=== PATIENT | female | born 1960 | race African-American/Black ===

== ENCOUNTER 2016-10-18 17:26 | Emergency (ER) | payer BC, OTHER ==
[~2016-10-18] VITALS: Ht 157.5 cm; Wt 100.7 kg
[2016-10-18 18:12] VITALS: BP 162/68
[2016-10-18] MEDS ORDERED: LIDOCAINE 1% HCL (LOCAL ANESTH.) INJ 20ML MDV ONE (20:28)
[2016-10-18] MEDS ORDERED: cefTRIAXone SOD 1,000 MG VL IM ONE (20:30)
[2016-10-18] MEDS ORDERED: LIDOCAINE 1% HCL (LOCAL ANESTH.) INJ 20ML MDV IJ ONE (21:00)
== END 2016-10-18 21:56 | disposition home or self-care (01) ==
LOC: ER 17:36
DX: J18.9 Pneumonia, unspecified organism (principal); R05 Cough
CPT/HCPCS: 71020; 71250; 96372; 99284; J0696; J2001

== ENCOUNTER 2017-07-15 05:45 | Inpatient (IN) | payer BC ==
[~2017-07-15] VITALS: Ht 157.5 cm; Wt 112.1 kg
[2017-07-15] MEDS ORDERED: cefTRIAXone 1GM/10ml IVPUSH 10 ML IV ONE (07:15)
[2017-07-15] MEDS ORDERED: ALBUTEROL SULF 2.5 MG/0.5ML(0.5%) NEB SOLN HHN ONE (07:15)
[2017-07-15] MEDS ORDERED: SODIUM CHLORIDE 0.9% 1,000 ML IV ONE (07:15)
[2017-07-15] MEDS ORDERED: AZITHROMYCIN 500MG/ 250ML 250 ML IV ONE (07:15)
[2017-07-15] MEDS ORDERED: IPRATROPIUM BROM 0.5 MG/2.5ML INH SOL HHN ONE (07:15)
[2017-07-15] MEDS ORDERED: methylPREDNISolone SOD SUCC 125 MG/2 ML VL IV ONE (07:15)
[2017-07-15 07:48] LABS: Basophils # (auto) 0.1 uL; Eosinophils # (auto) 0 uL; Hematocrit 44.1 % (36.0-46.0); Hemoglobin 14.2 g/dL (12.2-16.2); Lymphocytes # (auto) 3.1 uL; Lymphocytes % (auto) 30.6 % (10.0-50.0); Mean Corpuscular Hemoglobin 28.8 pg (28.0-32.0); Mean Corpuscular Hgb Conc. 32.2 g/dL (32.0-36.0); Mean Corpuscular Volume 89.5 fL (80.0-100.0); Mean Platelet Volume 9.8 fL (6.9-10.8); Monocytes # (auto) 1.2 uL; Monocytes % (auto) 11.6 % (0.0-12.0); Neutrophils # (auto) 5.7 uL; Neutrophils % (auto) 56.8 % (37.0-80.0); Nucleated Red Blood Cells % 0.1 %; Platelet Count (auto) 180 10^3/uL (140-450); Red Cell Distribution Width 14.4 % (11.8-14.3); White Blood Cell 10.1 10^3/uL (4.4-10.8)
[2017-07-15 08:20] LABS: Albumin 3.2 g/dL (3.4-5.0); BUN/Creatinine Ratio 30.4; Bilirubin, Total 0.5 mg/dL (0.2-1.0); Total Protein 6.7 g/dL (6.4-8.2)
[2017-07-15 08:33] LABS: B-Type Natriuretic Peptide 18.7 pg/mL (0-100); Temperature: 23.5 C (20.0-25.0)
[2017-07-15] MEDS ORDERED: SODIUM CHLORIDE 0.9% 1,000 ML IV SCH ×2 (09:10→17:20)
[2017-07-15] MEDS ORDERED: LACTULOSE 20Gm/30ML SOLN PO PRN (09:15)
[2017-07-15] MEDS ORDERED: HYDROcodone-ACET 5/325MG TAB PO PRN (09:15)
[2017-07-15] MEDS ORDERED: LORazepam 0.5 MG TAB PO PRN (09:15)
[2017-07-15] MEDS ORDERED: NITROGLYCERIN 0.4 MG SL TAB SL PRN (09:15)
[2017-07-15] MEDS ORDERED: OSELTAMIVIR 75 MG CAP PO ONE (09:15)
[2017-07-15] MEDS ORDERED: PROMETHAZINE HCL 25 MG/ML 1ML IV PRN (09:15)
[2017-07-15] MEDS ORDERED: ALBUTEROL SULF 2.5 MG/0.5ML(0.5%) NEB SOLN NEB PRN (09:15)
[2017-07-15] MEDS ORDERED: MORPHINE SULF INJ 2 MG/ML SYRINGE 1ML IV PRN ×2 (09:15)
[2017-07-15] MEDS ORDERED: TEMAZEPAM 15 MG CAP PO PRN (09:15)
[2017-07-15] MEDS ORDERED: ACETAMINOPHEN 500 MG TAB PO PRN (09:15)
[2017-07-15] MEDS ORDERED: DOXYCYCLINE HYC 100MG/250ML 250 ML IV SCH (09:15)
[2017-07-15] MEDS: OSELTAMIVIR 75 MG CAP PO SCH ×2 (10:00→22:08)
[2017-07-15] MEDS: ENOXAPARIN SOD 40 MG/0.4 ML SYRINGE SC SCH (10:58)
[2017-07-15] MEDS: ALBUTEROL SULF 2.5 MG/0.5ML(0.5%) NEB SOLN NEB SCH ×2 (12:00→18:50)
[2017-07-15] MEDS: IPRATROPIUM BROM 0.5 MG/2.5ML INH SOL NEB SCH ×2 (12:00→18:50)
[2017-07-15] MEDS: methylPREDNISolone SOD SUCC 40 MG/ML VL IV SCH ×2 (12:33→17:36)
[2017-07-15 12:58] VITALS: BP 134/78
[2017-07-15 13:00] VITALS: BP 134/78
[2017-07-15 13:23] VITALS: BP 134/78
[2017-07-15 17:28] VITALS: BP 124/67
[2017-07-15 20:00] VITALS: BP 144/66
[2017-07-15 22:00] VITALS: BP 144/66
[2017-07-16] MEDS: ALBUTEROL SULF 2.5 MG/0.5ML(0.5%) NEB SOLN NEB SCH ×3 (00:14→11:36)
[2017-07-16] MEDS: IPRATROPIUM BROM 0.5 MG/2.5ML INH SOL NEB SCH ×3 (00:14→11:36)
[2017-07-16] MEDS: methylPREDNISolone SOD SUCC 40 MG/ML VL IV SCH ×3 (02:12→11:32)
[2017-07-16 04:58] VITALS: BP 150/72
[2017-07-16 08:00] VITALS: BP 154/80
[2017-07-16 08:36] LABS: B-Type Natriuretic Peptide 87.66 pg/mL (0-100)
[2017-07-16 08:46] LABS: Temperature: 22.1 C (20.0-25.0)
[2017-07-16 09:00] VITALS: BP 154/80
[2017-07-16] MEDS ORDERED: cefTRIAXone 1GM/10ml IVPUSH 10 ML IV SCH (09:00)
[2017-07-16] MEDS: OSELTAMIVIR 75 MG CAP PO SCH (09:38)
[2017-07-16] MEDS: ENOXAPARIN SOD 40 MG/0.4 ML SYRINGE SC SCH (09:39)
[2017-07-16] MEDS ORDERED: AZITHROMYCIN 500MG/ 250ML 250 ML IV SCH (10:00)
[2017-07-16 12:38] VITALS: BP 133/73
[2017-07-16 12:39] VITALS: BP 133/73
== END 2017-07-16 14:50 | disposition home or self-care (01) | DRG 190 ==
LOC: ER 05:46 → TELE 05:47 → TELE-CENTR 11:30
PROVIDERS: ADMIT Internal Medicine; ATTEND Internal Medicine
DX: J44.0 Chronic obstructive pulmonary disease with (acute) lower respiratory infection (principal); J18.1 Lobar pneumonia, unspecified organism; J11.00 Influenza due to unidentified influenza virus with unspecified type of pneumonia; J11.1 Influenza due to unidentified influenza virus with other respiratory manifestations; E78.5 Hyperlipidemia, unspecified; F17.210 Nicotine dependence, cigarettes, uncomplicated; I10 Essential (primary) hypertension; J20.9 Acute bronchitis, unspecified; K21.9 Gastro-esophageal reflux disease without esophagitis; Z80.1 Family history of malignant neoplasm of trachea, bronchus and lung; Z82.49 Family history of ischemic heart disease and other diseases of the circulatory system; Z86.73 Personal history of transient ischemic attack (TIA), and cerebral infarction without residual deficits
CPT/HCPCS: 36415; 71020; 80053; 83880; 85025; 87400; 93306; 94640; 94761; 96361; 96365; 96375; 99291

== ENCOUNTER 2017-07-18 22:39 | Inpatient (IN) | payer BC ==
[~2017-07-18] VITALS: Ht 157.5 cm; Wt 80.7 kg
[2017-07-19] MEDS ORDERED: ALBUTEROL SULF 2.5 MG/0.5ML(0.5%) NEB SOLN NEB ONE (00:30)
[2017-07-19] MEDS ORDERED: IPRATROPIUM BROM 0.5 MG/2.5ML INH SOL NEB ONE (00:30)
[2017-07-19] MEDS ORDERED: methylPREDNISolone SOD SUCC 125 MG/2 ML VL IV ONE (00:30)
[2017-07-19 00:58] LABS: Basophils # (auto) 0.1 uL; Basophils % (auto) 0.8 % (0.0-2.0); Eosinophils # (auto) 0.1 uL; Eosinophils % (auto) 0.3 % (0.0-7.0); Hematocrit 42.8 % (36.0-46.0); Hemoglobin 13.7 g/dL (12.2-16.2); Lymphocytes # (auto) 6.9 uL; Lymphocytes % (auto) 39.2 % (10.0-50.0); Mean Corpuscular Hemoglobin 28.6 pg (28.0-32.0); Mean Corpuscular Hgb Conc. 32.1 g/dL (32.0-36.0); Mean Corpuscular Volume 89.1 fL (80.0-100.0); Mean Platelet Volume 9.4 fL (6.9-10.8); Monocytes # (auto) 1.4 uL; Monocytes % (auto) 8.1 % (0.0-12.0); Neutrophils % (auto) 51.6 % (37.0-80.0); Nucleated Red Blood Cells % 0.1 %; Platelet Count (auto) 214 10^3/uL (140-450); Red Cell Distribution Width 14.3 % (11.8-14.3); White Blood Cell 17.5 10^3/uL (4.4-10.8)
[2017-07-19 01:04] LABS: Allen Test Yes; Base Excess 7.2 mmol/L (-2.0-2.0); Blood 02Sat 90.6 % (96-100); Blood COHb 2.2 % (0.5-1.5); Blood MetHb 0.2 % (0.0-1.5); HCO3 34.8 mmol/L (22-26.0); HHb 9.2 % (0.0-5.0); MODE NASAL CANNULA; O2Hb 88.4 % (94.0-97.0); PCO2 62.5 mmHg (35.0-45.0); PCO2(T) 62.5 mmHg (35.0-45.0); Sample Type Arterial; pH 7.364 (7.350-7.450)
[2017-07-19 01:11] LABS: Calcium 8.4 mg/dL (8.5-10.1); Potassium 3.6 mmol/L (3.5-5.1)
[2017-07-19 01:14] LABS: Bilirubin, Total 0.3 mg/dL (0.2-1.0); Total Protein 6.6 g/dL (6.4-8.2)
[2017-07-19 01:19] LABS: INR 0.95 (0.9-1.15); Partial Thromboplastin Time 25.8 sec (22.64-33.71); Prothrombin Time 10.3 sec (9.37-12.3)
[2017-07-19 01:36] LABS: Temperature: 21.7 C (20.0-25.0)
[2017-07-19] MEDS ORDERED: MIDAZOLAM DRIP 100 mg/100mL NS 100 ML IV SCH (04:00)
[2017-07-19] MEDS ORDERED: SUCCINYLCHOLINE CHLORIDE 20 MG/ML 10ML VIAL IV ONE (04:00)
[2017-07-19] MEDS ORDERED: ETOMIDATE (2MG/ML) 20ML VIAL IV ONE (04:00)
[2017-07-19 04:36] LABS: Allen Test Yes; Base Excess 8.9 mmol/L (-2.0-2.0); Blood 02Sat 78.7 % (96-100); Blood COHb 1.6 % (0.5-1.5); Blood MetHb 0.2 % (0.0-1.5); HCO3 36.4 mmol/L (22-26.0); HHb 20.9 % (0.0-5.0); MODE NASAL CANNULA; O2Hb 77.3 % (94.0-97.0); PCO2 61.1 mmHg (35.0-45.0); PCO2(T) 61.1 mmHg (35.0-45.0); Sample Type Arterial; pH 7.393 (7.350-7.450)
[2017-07-19 05:07] LABS: Urine RBC None Seen /hpf (0 - 4)
[2017-07-19 05:16] LABS: Urine Bilirubin Negative (Negative); Urine Blood Negative /uL (Negative); Urine Color Yellow (Yellow); Urine Glucose Normal (Normal); Urine Ketone Negative (Negative); Urine Nitrite Negative (Negative); Urine Squamous Epithelial Cell FEW /hpf (<5); Urine Urobilinogen Normal (Negative)
[2017-07-19] MEDS ORDERED: ASPirin 81 mg TAB PO ONE (06:00)
[2017-07-19] MEDS ORDERED: ALBUTEROL SULF 2.5 MG/0.5ML(0.5%) NEB SOLN NEB PRN (11:15)
[2017-07-19] MEDS ORDERED: NITROGLYCERIN 0.4 MG SL TAB SL PRN (11:15)
[2017-07-19] MEDS ORDERED: DOCUSATE SOD 100 MG CAP PO PRN (11:15)
[2017-07-19] MEDS ORDERED: IPRATROPIUM BROM 0.5 MG/2.5ML INH SOL NEB PRN (11:15)
[2017-07-19] MEDS ORDERED: LORazepam 0.5 MG TAB PO PRN (11:15)
[2017-07-19] MEDS ORDERED: ACETAMINOPHEN 325 MG TAB PO PRN (11:15)
[2017-07-19] MEDS ORDERED: HYDROcodone-ACET 5/325MG TAB PO PRN (11:15)
[2017-07-19] MEDS ORDERED: ONDANSETRON HCL 4 MG/2 ML VIAL IV PRN (11:15)
[2017-07-19] MEDS ORDERED: MORPHINE SULF INJ 2 MG/ML SYRINGE 1ML IV PRN ×2 (11:15)
[2017-07-19] MEDS: methylPREDNISolone SOD SUCC 40 MG/ML VL IV SCH ×2 (12:37→18:30)
[2017-07-19] MEDS ORDERED: HYDR10TA26 PO (17:30)
[2017-07-19] MEDS ORDERED: OSEL75CA11 PO (17:30)
[2017-07-19] MEDS ORDERED: AZIT500T4 PO (17:30)
[2017-07-19 18:38] VITALS: BP 163/81
[2017-07-19] MEDS ORDERED: PRED1PAK9 PO (18:40)
[2017-07-19 19:58] VITALS: BP 140/63
[2017-07-19] MEDS ORDERED: OSELTAMIVIR 75 MG CAP PO SCH (22:00)
== END 2017-07-19 20:20 | disposition home or self-care (01) | DRG 280 ==
LOC: ER 22:44 → TELE 22:45 → TELE-EAST 07-19 17:41
PROVIDERS: ADMIT Family Medicine; ATTEND Family Medicine
DX: I21.A1 Myocardial infarction type 2 (principal); J96.22 Acute and chronic respiratory failure with hypercapnia; Z99.81 Dependence on supplemental oxygen; J44.1 Chronic obstructive pulmonary disease with (acute) exacerbation; F17.210 Nicotine dependence, cigarettes, uncomplicated; I10 Essential (primary) hypertension; E66.9 Obesity, unspecified; E78.5 Hyperlipidemia, unspecified; J10.1 Influenza due to other identified influenza virus with other respiratory manifestations; Z68.35 Body mass index [BMI] 35.0-35.9, adult
CPT/HCPCS: 36415; 36600; 70450; 71010; 80053; 80307; 81001; 82805; 83605; 83880; 84484; 85025; 85379; 85610; 85730; 87081; 93005; 94640; 94761; 96374; J0330

== ENCOUNTER 2018-03-16 14:45 | Emergency (ER) | payer BC ==
[~2018-03-16] VITALS: Ht 157.5 cm; Wt 107.5 kg
[~2018-03-16 14:45] MED LIST: AZIT500T4 PO; HYDR10TA26 PO; OSEL75CA11 PO; PRED1PAK9 PO
[2018-03-16 15:49] VITALS: BP 152/76
[2018-03-16] MEDS ORDERED: KETOROLAC TROMETH 60MG/2ML VIAL IM ONE (16:15)
== END 2018-03-16 16:57 | disposition home or self-care (01) ==
LOC: ER 14:45
DX: K42.9 Umbilical hernia without obstruction or gangrene (principal); F17.210 Nicotine dependence, cigarettes, uncomplicated; J44.9 Chronic obstructive pulmonary disease, unspecified; I10 Essential (primary) hypertension; E78.5 Hyperlipidemia, unspecified
CPT/HCPCS: 74176; 82962; 93005; 96372; 99284; J1885

== ENCOUNTER 2018-12-04 08:07 | Inpatient (IN) | payer BC ==
[~2018-12-04] VITALS: Ht 157.5 cm; Wt 99.9 kg
[2018-12-04] MEDS ORDERED: IPRATROPIUM BROM 0.5 MG/2.5ML INH SOL NEB ONE (09:15)
[2018-12-04] MEDS ORDERED: ALBUTEROL SULF 2.5 MG/0.5ML(0.5%) NEB SOLN NEB ONE (09:15)
[2018-12-04] MEDS ORDERED: cefTRIAXone 1GM/50ML D5W 50 ML IV ONE (09:30)
[2018-12-04] MEDS ORDERED: AZITHROMYCIN 500MG/ 250ML 250 ML IV ONE (09:30)
[2018-12-04 09:41] LABS: Basophils # (auto) 0 uL; Basophils % (auto) 0.2 % (0.0-2.0); Eosinophils # (auto) 0.2 uL; Hematocrit 42.9 % (36.0-46.0); Lymphocytes # (auto) 2.3 uL; Lymphocytes % (auto) 24.2 % (10.0-50.0); Mean Corpuscular Hemoglobin 27.9 pg (28.0-32.0); Mean Corpuscular Hgb Conc. 32.7 g/dL (32.0-36.0); Mean Corpuscular Volume 85.4 fL (80.0-100.0); Monocytes # (auto) 0.8 uL; Monocytes % (auto) 8.6 % (0.0-12.0); Neutrophils # (auto) 6.3 uL; Nucleated Red Blood Cells % 0.1 %; Platelet Count (auto) 260 10^3/uL (140-450); Red Blood Cells 5.02 10^6/uL (4.0-5.20); Red Cell Distribution Width 14.4 % (11.8-14.3); White Blood Cell 9.7 10^3/uL (4.4-10.8)
[2018-12-04 10:00] LABS: Albumin 3.3 g/dL (3.4-5.0); Calcium 8.6 mg/dL (8.5-10.1); Potassium 3.9 mmol/L (3.5-5.1)
[2018-12-04 10:03] LABS: BUN/Creatinine Ratio 10.6; Bilirubin, Total 0.4 mg/dL (0.2-1.0); Total Protein 7.8 g/dL (6.4-8.2)
[2018-12-04] MEDS ORDERED: PROMETHAZINE W/CODEINE 5 ML ORAL SYRUP PO ONE (13:00)
[2018-12-04] MEDS ORDERED: SODIUM CHLORIDE 0.9% 1,000 ML IV ONE (13:15)
[2018-12-04 13:43] LABS: Urine WBC None Seen /hpf (0 - 5)
[2018-12-04] MEDS ORDERED: ACETAMINOPHEN 325 MG TAB PO PRN (14:30)
[2018-12-04] MEDS ORDERED: MORPHINE SULF INJ 2 MG/ML SYRINGE 1ML IV PRN (14:30)
[2018-12-04] MEDS ORDERED: NITROGLYCERIN 0.4 MG SL TAB SL PRN (14:30)
[2018-12-04] MEDS ORDERED: ONDANSETRON HCL 4 MG/2 ML VIAL IV PRN (14:30)
[2018-12-04] MEDS ORDERED: hydrALAZINE HCL 20 MG/ML VL IV PRN (14:30)
[2018-12-04 14:57] LABS: Urine Bacteria NONE SEEN /hpf (None Seen); Urine Blood Negative /uL (Negative); Urine Specific Gravity 1.004 (1.001-1.035)
[2018-12-04 15:46] VITALS: BP 161/70
[2018-12-04] MEDS: PIPERACILLIN-TAZOB 3.375GM 100 ML IV SCH (18:00)
[2018-12-04] MEDS ORDERED: LOSA-46 PO (18:24)
--- NOTE | 2018-12-04 19:40 | NUR ---
received pt to room 251 A at approx. 1800. a/o x 4. vss. report passed on to ribbon cleaner.
[2018-12-04] MEDS: ALBUTEROL SULF 2.5 MG/0.5ML(0.5%) NEB SOLN NEB SCH ×2 (19:41→19:52)
[2018-12-04] MEDS: IPRATROPIUM BROM 0.5 MG/2.5ML INH SOL NEB SCH ×2 (19:41→19:52)
[2018-12-04] MEDS: MORPHINE SULFATE 4 MG/ML SYR/VIAL IV PRN (19:51)
--- NOTE | 2018-12-04 19:52 | NUR ---
Respiratory note: PT REFUSE NEXT SCHEDULED MED NEB AT THIS TIME, PT NOTIFIED TO CALL RT IF SOB OCCURS. PT ALSO REFUSE 0600 MED NEB
--- NOTE | 2018-12-04 20:00 | NUR ---
Opening Shift Note: A&Ox4, resting in bed. Room air, pain level 7/10 in abdomen from cough/hernia irritation, and ambulates independently without assistive devices. Bed locked in lowest position, side rails up x2, and call light within reach. IV 22 g in right hand removed related to pain. New IV 22 g in left forearm started x1 attempt. Skin intact. Patient will be moved to negative pressure room r/t to r/o TB. POC discussed and questions answered. Will continue to round prn.
--- NOTE | 2018-12-04 21:00 | NUR ---
Room change: Patient moved to room 238 for negative pressure; r/o TB.
[2018-12-04 21:30] VITALS: BP 158/99
--- NOTE | 2018-12-04 23:30 | NUR ---
Respiratory culture sample sent to the lab via bullet system.
[2018-12-05] MEDS: IPRATROPIUM BROM 0.5 MG/2.5ML INH SOL NEB SCH ×4 (00:26→19:28)
[2018-12-05] MEDS: ALBUTEROL SULF 2.5 MG/0.5ML(0.5%) NEB SOLN NEB SCH ×4 (00:26→19:28)
--- NOTE | 2018-12-05 00:36 | NUR ---
Respiratory note: PLACED PT ON 2LNC
[2018-12-05] MEDS: PROMETHAZINE W/CODEINE 5 ML ORAL SYRUP PO PRN ×2 (01:00→05:15)
--- NOTE | 2018-12-05 01:00 | NUR ---
High Blood Pressure: BP retake 160/79; 10 mg of hydralazine given IVP per prn order of SBP >160
[2018-12-05] MEDS: PIPERACILLIN-TAZOB 3.375GM 100 ML IV SCH ×4 (01:12→17:39)
[2018-12-05] MEDS: MORPHINE SULFATE 4 MG/ML SYR/VIAL IV PRN ×4 (01:13→16:11)
--- NOTE | 2018-12-05 01:30 | NUR ---
Page sent for a sleep aid; per Dr. Shah at [facility], one time order of Benadryl 25 mg PO. Patient refused this medication. No order placed
[2018-12-05 04:30] VITALS: BP 159/100
[2018-12-05 05:00] VITALS: BP 157/78
[2018-12-05 06:19] LABS: Basophils # (auto) 0.1 uL; Basophils % (auto) 0.7 % (0.0-2.0); Eosinophils # (auto) 0.2 uL; Eosinophils % (auto) 2.2 % (0.0-7.0); Hemoglobin 13.6 g/dL (12.2-16.2); Lymphocytes # (auto) 1.8 uL; Lymphocytes % (auto) 22.6 % (10.0-50.0); Mean Corpuscular Hemoglobin 27.8 pg (28.0-32.0); Mean Corpuscular Hgb Conc. 32.5 g/dL (32.0-36.0); Mean Corpuscular Volume 85.6 fL (80.0-100.0); Monocytes # (auto) 0.7 uL; Monocytes % (auto) 9.6 % (0.0-12.0); Neutrophils % (auto) 64.9 % (37.0-80.0); Nucleated Red Blood Cells % 0.1 %; Platelet Count (auto) 232 10^3/uL (140-450); Red Blood Cells 4.91 10^6/uL (4.0-5.20); Red Cell Distribution Width 14.5 % (11.8-14.3); White Blood Cell 7.8 10^3/uL (4.4-10.8)
[2018-12-05 06:30] LABS: BUN/Creatinine Ratio 14.3; Calcium 8.7 mg/dL (8.5-10.1); Potassium 3.5 mmol/L (3.5-5.1)
--- NOTE | 2018-12-05 07:35 | NUR ---
RESPIRATORY THERAPY REPORTS PT HAS GONE FOR A WALK AROUND HOSPITAL, RULING PT OUT FOR TB. CALLED PBX AND ASKED THEM TO CALL PATIENT BACK TO ROOM FROM OVER HEAD SPEAKER. PATIENT WAS PAGED, WILL EDUCATE PT TO STAY IN ROOM UNTIL RESULTS ARE AVAILABLE.
--- NOTE | 2018-12-05 08:00 | NUR ---
PT RETURNED TO ROOM. PT EDUCATED TO PLEASE STAY IN ROOM UNTIL TB RESULTS COME IN TO PREVENT SPREAD OF POSSIBLE INFECTION. PT AGREED AND VERBALIZED UNDERSTANDING.
[2018-12-05 08:30] VITALS: BP 121/57
[2018-12-05] MEDS: AZITHROMYCIN 500MG/ 250ML 250 ML IV SCH (09:45)
[2018-12-05] MEDS: ENOXAPARIN SOD 40 MG/0.4 ML SYRINGE SC SCH (09:46)
--- NOTE | 2018-12-05 11:13 | NUR ---
Went to check on patient, pt out of room. Pt came back and reports she went to get a paper. Educated pt again to please stay in room until TB results come back, otherwise she could spread a possible infection. Pt agreed again. Pt also unhooked herself from iv and hooked herself back up. Pt educated to use call light so nurse can unhook her. Dr Muse saw pt, orders for new sputum sample x3 days for AFB smear. Order already put in by Dr. Jauregui. New order for losartan 50 mg po daily and call on Pulmonary consult with DR Quinonez. new sputum sample needed. cup at bedside, pt aware.
--- NOTE | 2018-12-05 12:03 | NUR ---
ASKED POLICE CHIEF TO CALL ON PULMONARY CONSULT WITH DR. FISH.
--- NOTE | 2018-12-05 12:10 | NUR ---
HEARD PATIENT SCREAMING ON PHONE FROM NURSING STATION. WENT INTO PATIENT ROOM, PT SAID 'I'M GOING TO KICK YOUR FUCKING ASS WHEN I GET OUT OF HERE, DO YOU HEAR ME!" PT REPORTS HE WAS TALKING TO HIS BROTHER. CLINT CALLED EARLIER AND REQUESTED TO SPEAK WITH PT, PT DIDN'T ANSWER PHONE. ASSISTED PT IN DIALING CLINT, PHONE RANG AND HANDED PHONE TO PATIENT. PT CALMED DOWN, WILL CONTINUE TO MONITOR. Addendum: 12/05/18 at 1243 by TYLER SONG RN WRONG PATIENT
--- NOTE | 2018-12-05 12:44 | NUR ---
SENT SPUTUM SAMPLE TO LAB PER MD ORDER.
[2018-12-05 12:55] VITALS: BP 132/66
--- NOTE | 2018-12-05 13:33 | NUR ---
CHARGE CALLED DR HARPER MD OFFICE REPORTS IS NOT DOING PULMONARY CONSULTS FOR [facility] AT THIS TIME, DR ALEXANDRE NOTIFIED, WILL ASK ALTERATIONS MANAGER TO FOLLOW UP ON CONSULT WITH DR Barrett
[2018-12-05 16:48] VITALS: BP 154/71
--- NOTE | 2018-12-05 18:37 | NUR ---
Respiratory note: AT BEDSIDE FOR MED NEB TX. PT EATING AT THIS TIME, PT WOULD LIKE ME TO COME BACK AT A LATER TIME.
--- NOTE | 2018-12-05 19:28 | NUR ---
Respiratory note: AT BEDSIDE FOR SEAN MCMILLAN. PT WALKING INTO ROOM AND HAS CIVILIAN CLOTHES ON TOP OF HOSPITAL GOWN, PT EXPLAINED SHE NEEDS TO STAY IN ROOM DUE TO ISOLATION. WILL NOTIFY NOC RN WHEN AVAILABLE.
--- NOTE | 2018-12-05 20:15 | NUR ---
Opening Shift Note: A&Ox4, resting in bed. Room air, pain level 0/10, and ambulates independently without assistive devices. Bed locked in lowest position, side rails up x2, and call light within reach. IV 22 g in right hermosillo removed related to pain. New IV 22 g in left forearm started x1 attempt. Skin intact. Patient will be moved to negative pressure room r/t to r/o TB. POC discussed and questions answered. Will continue to round prn. Addendum: 12/05/18 at 2246 by DAWSON MCCARTY RN IV 22 g in left forearm removed r/t infiltration. Pt in room 238 for isolation.
--- NOTE | 2018-12-05 21:00 | NUR ---
New IV: IV 22 g in right forearm inserted x1 attempt. Patient tolerated well.
[2018-12-05 22:00] VITALS: BP 152/74
[2018-12-06] MEDS: PIPERACILLIN-TAZOB 3.375GM 100 ML IV SCH ×4 (00:08→18:43)
[2018-12-06] MEDS: ALBUTEROL SULF 2.5 MG/0.5ML(0.5%) NEB SOLN NEB SCH ×4 (00:25→19:11)
[2018-12-06] MEDS: IPRATROPIUM BROM 0.5 MG/2.5ML INH SOL NEB SCH ×4 (00:25→19:11)
[2018-12-06] MEDS: MORPHINE SULFATE 4 MG/ML SYR/VIAL IV PRN ×2 (00:39→08:19)
[2018-12-06 05:00] VITALS: BP 147/70
[2018-12-06 06:31] LABS: Basophils # (auto) 0 uL; Basophils % (auto) 0.5 % (0.0-2.0); Eosinophils # (auto) 0.3 uL; Eosinophils % (auto) 3.6 % (0.0-7.0); Hematocrit 40.1 % (36.0-46.0); Hemoglobin 12.7 g/dL (12.2-16.2); Lymphocytes # (auto) 2.7 uL; Lymphocytes % (auto) 30.1 % (10.0-50.0); Mean Corpuscular Hemoglobin 27.4 pg (28.0-32.0); Mean Corpuscular Hgb Conc. 31.6 g/dL (32.0-36.0); Mean Corpuscular Volume 86.7 fL (80.0-100.0); Monocytes # (auto) 0.9 uL; Monocytes % (auto) 9.7 % (0.0-12.0); Neutrophils % (auto) 56.1 % (37.0-80.0); Platelet Count (auto) 219 10^3/uL (140-450); Red Blood Cells 4.63 10^6/uL (4.0-5.20); Red Cell Distribution Width 14.1 % (11.8-14.3)
[2018-12-06 06:45] LABS: Potassium 3.6 mmol/L (3.5-5.1)
[2018-12-06 06:48] LABS: Calcium 8.5 mg/dL (8.5-10.1)
[2018-12-06 06:51] LABS: BUN/Creatinine Ratio 11.9
[2018-12-06 09:00] VITALS: BP 170/86
[2018-12-06] MEDS: AZITHROMYCIN 500MG/ 250ML 250 ML IV SCH (09:29)
[2018-12-06] MEDS: ENOXAPARIN SOD 40 MG/0.4 ML SYRINGE SC SCH (09:30)
[2018-12-06] MEDS: LOSARTAN POTASSIUM 50 MG TAB PO SCH (09:30)
--- NOTE | 2018-12-06 10:00 | NUR ---
PT CAME TO THE NURSING STATION AFTER BEING ADVISED SEVERAL TIMES TO STAY IN ROOM UNTIL TB TEST COMES BACK. PT REPORTS HER FRIEND BROUGHT HER COMPUTER AND IS DOWN STAIRS IN [address] [address]ING [address] WAITING FOR SOMEONE TO COME GET IT. ASKED PT TO GO BACK INTO ROOM TO PREVENT SPREAD OF POSSIBLE INFECTION AGAIN, AND PICKED UP HER COMPUTER AND BAG FROM [place], HER FRIEND, AND BROUGHT TO PATIENT.
--- NOTE | 2018-12-06 10:49 | NUR ---
CALLED LAB, LAB REPORTS AFB SMEAR HAS BEEN COLLECTED AND WILL TAKE 2-5 DAYS TO COME BACK, AND THE CULTURE WILL TAKE 2 WEEKS TO COME BACK. PULMONARY CONSULT CALLED IN AT 1348 YESTERDAY, WILL CALL AGAIN TODAY PER MD REQUEST.
--- NOTE | 2018-12-06 11:04 | NUR ---
BRUSH CLEANER REPORTS PT BP 170/86 AND HR 98. REASSESSED BP AND HR AFTER MORNING BP MED. BP IS CURRENTLY 138/ 83 AND HR 92. SPUTUM CUP AT PT BEDSIDE. PT AWARE ANOTHER SPUTUM SAMPLE IS NEEDED TODAY AND TOMORROW. PT REPORTS SHE WILL PRESS CALL LIGHT WHEN SHE IS ABLE TO GIVE SAMPLE.
--- NOTE | 2018-12-06 11:57 | NUR ---
SENT SPUTUM SAMPLE FOR AFB TEST TO LAB, WILL CONTINUE TO MONITOR. Addendum: 12/06/18 at 1201 by TYLER SONG RN CALLED LAB AND CONFIRMED THEY RECEIVED SAMPLE. LAB REPORTS THEY ALREADY RECEIVED SAMPLE AT 0700. WILL CONTINUE TO MONITOR.
--- NOTE | 2018-12-06 12:26 | NUR ---
DR ALEXANDRE SAW PATIENT AND DISCUSSED POC. MD AWARE THAT AFB SMEAR AND CULTURE WILL TAKE A FEW DAYS TO WEEKS. PATIENT'S QUESTION/ CONCERNS ADDRESSED. WILL CONTINUE TO MONITOR.
[2018-12-06 13:00] VITALS: BP 138/78
--- NOTE | 2018-12-06 13:12 | NUR ---
DR FREED SAW PATIENT FOR PULMONARY. REPORTS THAT IF PATIENT COUGHS UP EXCESSIVE AMOUNTS OF SPUTUM, TO REPORT IT TO HIM, AND HE WILL TRY AND FOLLOW UP WITH THE PATIENT EVERY OTHER DAY.
[2018-12-06 17:00] VITALS: BP 113/65
--- NOTE | 2018-12-06 17:52 | NUR ---
NURSE AT NURSING STATION REPORTS PT OUT OF ROOM WALKING AROUND, PT INSTRUCTED AGAIN TO PLEASE REMAIN IN ROOM PENDING TB RESULTS, WILL CONTINUE TO MONITOR.
--- NOTE | 2018-12-06 20:00 | NUR ---
Opening Shift Note Assumed care of patient, awake and alert. No S/S of distress/SOB or pain. Expiratory wheezes throughout lung tobar. suctioning(orally) blood-tinged sputum via yankauer. Productive cough with blood-tinged sputum. Insructed on POC and to call for assist PRN, will continue to monitor for changes Q1hr and PRN.
[2018-12-06 22:00] VITALS: BP 156/94
[2018-12-06] MEDS ORDERED: TEMAZEPAM 15 MG CAP PO ONE (22:45)
[2018-12-07] VITALS (7 sets, daily range): BP systolic 130–170; BP diastolic 56–94
--- NOTE | 2018-12-07 00:01 | NUR ---
IV removal IV site to right forearm noted with redness /swelling. IV DC'd with clean sterile technique, catheter fully intact. Pressure dressing applied to site. Patient tolerated well. New IV site to left hand with 22 gauge.
[2018-12-07] MEDS: IPRATROPIUM BROM 0.5 MG/2.5ML INH SOL NEB SCH ×4 (00:10→19:30)
[2018-12-07] MEDS: ALBUTEROL SULF 2.5 MG/0.5ML(0.5%) NEB SOLN NEB SCH ×4 (00:10→19:30)
[2018-12-07] MEDS: MORPHINE SULFATE 4 MG/ML SYR/VIAL IV PRN ×4 (00:59→21:25)
[2018-12-07] MEDS: PIPERACILLIN-TAZOB 3.375GM 100 ML IV SCH ×4 (06:02→17:59)
--- NOTE | 2018-12-07 08:00 | NUR ---
ASSESSMENT NOTE PT IS ALERT ORIENTED X4, RESTING IN BED COMFORTABLY, NO DISTRESS NOTED, PT CONTINUE TO HAVE STRONG OCCASIONAL COUGH WITH SPUTUM TINGED BLOOD, USE THE SUCTION NEEDED, PT IS ABLE TO AMBULATE AND SELF REPOSITION NEEDED, CONTINUE ON DROPLET CONTACT ISOLATION, MONITOR EVERY SHIFT.
[2018-12-07] MEDS: AZITHROMYCIN 500MG/ 250ML 250 ML IV SCH (09:18)
[2018-12-07] MEDS: ENOXAPARIN SOD 40 MG/0.4 ML SYRINGE SC SCH (09:27)
[2018-12-07] MEDS: LOSARTAN POTASSIUM 50 MG TAB PO SCH (09:28)
--- NOTE | 2018-12-07 10:30 | NUR ---
IV insertion IV access obtained, via clean sterile technique by inserting 22 gauge catheter at after attempt(s). IV secured properly. No trauma to site. Patient tolerated procedure well.
--- NOTE | 2018-12-07 10:50 | NUR ---
DR ALEXANDRE IS HERE FOLLOWING UP ON PT WITH NEW ORDERS TO DISCONTINUE TELE BOX AND AMBIEN AT BED TIME NEEDED.
[2018-12-07] MEDS: PROMETHAZINE W/CODEINE 5 ML ORAL SYRUP PO PRN (10:56)
--- NOTE | 2018-12-07 14:00 | NUR ---
PT IS SLEEPING, CONTINUE MONITORING.
--- NOTE | 2018-12-07 19:25 | NUR ---
PT IS CONTINUE STABLE, SUBSIDING OF COUGH IS NOTED, SPUTUM CONTINUE TINGED BLOOD, CONTINUE MONITORING.
--- NOTE | 2018-12-07 19:30 | NUR ---
Opening Shift Note Assumed care of patient, awake and alert oriented x4. No S/S of distress/SOB noted. Bed is in lowest locked position with bed rails up x2 and call light is within reach of the patient. Airborne precautions present, suction is besides the patient. Instructed on POC and to call for assist PRN.
[2018-12-07] MEDS: ZOLPIDEM TARTRATE 5 MG TAB PO PRN (20:35)
[2018-12-08] MEDS: PIPERACILLIN-TAZOB 3.375GM 100 ML IV SCH ×5 (00:06→23:58)
[2018-12-08] MEDS: IPRATROPIUM BROM 0.5 MG/2.5ML INH SOL NEB SCH ×4 (00:52→18:22)
[2018-12-08] MEDS: ALBUTEROL SULF 2.5 MG/0.5ML(0.5%) NEB SOLN NEB SCH ×4 (00:52→18:22)
[2018-12-08 05:13] VITALS: BP 137/70
[2018-12-08] MEDS: MORPHINE SULFATE 4 MG/ML SYR/VIAL IV PRN ×2 (06:01→21:13)
[2018-12-08 06:14] LABS: Basophils # (auto) 0.1 uL; Basophils % (auto) 0.5 % (0.0-2.0); Eosinophils # (auto) 0.3 uL; Eosinophils % (auto) 2.7 % (0.0-7.0); Hematocrit 41.6 % (36.0-46.0); Hemoglobin 13.6 g/dL (12.2-16.2); Lymphocytes # (auto) 2.7 uL; Lymphocytes % (auto) 28.5 % (10.0-50.0); Mean Corpuscular Hemoglobin 27.9 pg (28.0-32.0); Mean Corpuscular Hgb Conc. 32.7 g/dL (32.0-36.0); Mean Corpuscular Volume 85.2 fL (80.0-100.0); Monocytes # (auto) 0.7 uL; Monocytes % (auto) 7.4 % (0.0-12.0); Neutrophils # (auto) 5.8 uL; Neutrophils % (auto) 60.9 % (37.0-80.0); Platelet Count (auto) 255 10^3/uL (140-450); Red Blood Cells 4.88 10^6/uL (4.0-5.20); White Blood Cell 9.5 10^3/uL (4.4-10.8)
[2018-12-08 06:27] LABS: Calcium 9.1 mg/dL (8.5-10.1); Potassium 4.3 mmol/L (3.5-5.1)
[2018-12-08 06:30] LABS: BUN/Creatinine Ratio 14.1
[2018-12-08 08:00] VITALS: BP 152/79
--- NOTE | 2018-12-08 08:00 | NUR ---
ASSESSMENT NOTE PT IS ALERT ORIENTED X4, RESTING IN BED COMFORTABLY, NO DISTRESS NOTED, PT'S COUGH IS MUCH LESS AND LESS COMPARING YESTERDAY, USE THE SUCTION NEEDED, PT IS ABLE TO AMBULATE AND SELF REPOSITION NEEDED, CONTINUE ON DROPLET CONTACT ISOLATION, MONITOR EVERY SHIFT.
[2018-12-08 09:00] VITALS: BP 146/74
--- NOTE | 2018-12-08 09:45 | NUR ---
DR ZAMORA AT BED SIDE FOLLOWING UP ON PT
[2018-12-08] MEDS: AZITHROMYCIN 500MG/ 250ML 250 ML IV SCH (10:16)
[2018-12-08] MEDS: LOSARTAN POTASSIUM 50 MG TAB PO SCH (10:19)
[2018-12-08] MEDS: ENOXAPARIN SOD 40 MG/0.4 ML SYRINGE SC SCH (10:19)
--- NOTE | 2018-12-08 11:00 | NUR ---
IV insertion IV access obtained, via clean sterile technique by inserting 22 gauge catheter at after attempt(s). IV secured properly. No trauma to site. Patient tolerated procedure well.OLD IV REMOVED AFTER START TO SHOW SIGNS OF INFILTRATION.
[2018-12-08 13:00] VITALS: BP 124/71
--- NOTE | 2018-12-08 13:59 | NUR ---
NUTRITION ASSESSMENT NOTES Please refer to link notes of nutrition screen form filed under the intervention section of the plan of care for further details. Est. Needs based on AdBw (62 kg): 1250 kcal to 1550 kcal (20-25 kcal/kgAdBW), 62 gms to 74 gms pro (1.0-1.2 gms/kgAdBW). Will continue to monitor pertinent labs and reassess nutrient need prn Thank you. Addendum: 12/08/18 at [address] Amended: Links added.
[2018-12-08 17:35] VITALS: BP 134/61
--- NOTE | 2018-12-08 18:17 | NUR ---
PT CONTINUE STABLE, NO ACTIVE COUGH NOTED, CONTINUE MONITORING.
--- NOTE | 2018-12-08 19:30 | NUR ---
Opening Shift Note Received report from Elizabeth NORMAN. Assumed care of patient, awake and alert. No S/S of distress/SOB or pain. Instructed on POC and to call for assist PRN, will continue to monitor for changes Q1hr and PRN.
[2018-12-08 22:00] VITALS: BP 145/80
[2018-12-08] MEDS: ZOLPIDEM TARTRATE 5 MG TAB PO PRN (22:14)
[2018-12-09] MEDS: ALBUTEROL SULF 2.5 MG/0.5ML(0.5%) NEB SOLN NEB SCH ×3 (00:20→11:44)
[2018-12-09] MEDS: IPRATROPIUM BROM 0.5 MG/2.5ML INH SOL NEB SCH ×3 (00:20→11:44)
[2018-12-09] MEDS: MORPHINE SULFATE 4 MG/ML SYR/VIAL IV PRN (03:29)
[2018-12-09 05:30] VITALS: BP 137/78
[2018-12-09] MEDS: PIPERACILLIN-TAZOB 3.375GM 100 ML IV SCH ×2 (06:04→12:00)
[2018-12-09 06:05] LABS: Basophils # (auto) 0.1 uL; Basophils % (auto) 0.6 % (0.0-2.0); Eosinophils # (auto) 0.3 uL; Eosinophils % (auto) 3.4 % (0.0-7.0); Hematocrit 44.7 % (36.0-46.0); Lymphocytes # (auto) 2.6 uL; Lymphocytes % (auto) 24.9 % (10.0-50.0); Mean Corpuscular Hemoglobin 27.6 pg (28.0-32.0); Mean Corpuscular Hgb Conc. 31.4 g/dL (32.0-36.0); Mean Corpuscular Volume 87.7 fL (80.0-100.0); Monocytes # (auto) 0.9 uL; Monocytes % (auto) 8.8 % (0.0-12.0); Neutrophils # (auto) 6.4 uL; Neutrophils % (auto) 62.3 % (37.0-80.0); Nucleated Red Blood Cells % 0.1 %; Platelet Count (auto) 236 10^3/uL (140-450); Red Blood Cells 5.09 10^6/uL (4.0-5.20); Red Cell Distribution Width 14.7 % (11.8-14.3); White Blood Cell 10.3 10^3/uL (4.4-10.8)
[2018-12-09 06:26] LABS: Chloride 106 mmol/L (98-107); Sodium 137 mmol/L (136-145)
--- NOTE | 2018-12-09 06:30 | NUR ---
Sputum sample sent to laboratory for AFB smear.
[2018-12-09 06:31] LABS: Anion Gap 4 (5-15); Blood Urea Nitrogen 8 mg/dL (7-18); Calcium 8.8 mg/dL (8.5-10.1); Carbon Dioxide 27 mmol/L (21-32); Glucose 93 mg/dL (74-106); Magnesium 2.6 mg/dL (1.6-2.6)
[2018-12-09 06:34] LABS: BUN/Creatinine Ratio 12.1; GFR African American 117 mL/min; GFR Non-African American 97 mL/min
--- NOTE | 2018-12-09 07:25 | NUR ---
Patient had minimal coughing overnight but still with pain when coughing, vitals stable. Endorsed care to Winter NORMAN.
--- NOTE | 2018-12-09 07:30 | NUR ---
OPENING SHIFT PATIENT AWAKE, ALERT, AND ORIENTED X4. NO S/S OF DISTRESS OR SOB. PATIENT DENIES NEED FOR PAIN MEDICATION AT THIS TIME. MODERATE HEMOPTYSIS OBSERVED WHILE THIS R.N. WAS IN ROOM. PATIENT STATES, "SEE THIS KEEPS HAPPENING, I HOPE HE SENDS ME HOME WITH LOTS OF ANTIBIOTICS. " BED IS IN LOWEST POSITION, SIDE RAILS UP X2, AND CALL LIGHT WITHIN REACH. DISCUSSED POC WITH PATIENT, PATIENT VERBALIZED UNDERSTANDING. WILL CONTINUE TO MONITOR Q1 HOUR AND PRN.
--- NOTE | 2018-12-09 09:35 | NUR ---
DR. NOAH Arias. AT BEDSIDE. MWing AWARE OF PATIENT HEMOPTYSIS. DISCUSSED POC WITH PATIENT. PATIENT VERBALIZED UNDERSTANDING. WILL AWAIT. MWing. ORDERS
[2018-12-09] MEDS ORDERED: LEVO750T2 PO (09:39)
[2018-12-09] MEDS ORDERED: METR500T PO (09:39)
[2018-12-09] MEDS ORDERED: HYDR-4683 GT (09:40)
--- NOTE | 2018-12-09 09:45 | NUR ---
ROOM AIR SP02 % IS 87% PATIENT STATES, "I HAVE HOME OXYGEN AT HOME. IM ON 2 LITERS. ) Gil MADE AWARE OF PATIENT STATUS PATIENT IS BEING DISCHARGED
[2018-12-09] MEDS: ENOXAPARIN SOD 40 MG/0.4 ML SYRINGE SC SCH (09:56)
[2018-12-09] MEDS: AZITHROMYCIN 500MG/ 250ML 250 ML IV SCH (09:56)
[2018-12-09] MEDS: LOSARTAN POTASSIUM 50 MG TAB PO SCH ×2 (09:56→10:49)
[2018-12-09 10:14] VITALS: BP 151/78
[2018-12-09 10:45] VITALS: BP 151/78
--- NOTE | 2018-12-09 11:43 | NUR ---
RT NOTE: PT BEING DISCHARGED. WAITING FOR RIDE HOME. NO RESPIRATORY DISTRESS ON RA.
--- NOTE | 2018-12-09 12:08 | NUR ---
DISCHARGE Discharge instructions given as ordered. Encourage to follow up with PCP as instructed. All questions and concerns addressed. Patient verbalized understanding. IV removed with catheter intact, pressure dressing applied. Patient taken to vehicle via wheelchair with all personal belongings, accompanied by staff and family member. No distress noted at time of departure.
--- NOTE | 2018-12-09 15:35 | NUR ---
PRESCRIPTIONS CALLED IN TO PHARMACY CALLED IN [facility] AND CIARA [facility] TO [facility] LISTED UNDER PATIENT'S PREFERRED PHARMACY
== END 2018-12-09 12:00 | disposition home health service (06) | DRG 190 ==
LOC: ER 08:07 → TELE 14:34 → TELE-EAST 18:23 → EAST 12-07 22:17
PROVIDERS: ADMIT Hospitalist; ATTEND Hospitalist
DX: J44.0 Chronic obstructive pulmonary disease with (acute) lower respiratory infection (principal); J18.1 Lobar pneumonia, unspecified organism; R04.2 Hemoptysis; Z68.41 Body mass index [BMI] 40.0-44.9, adult; I10 Essential (primary) hypertension; E78.5 Hyperlipidemia, unspecified; E66.01 Morbid (severe) obesity due to excess calories; F17.211 Nicotine dependence, cigarettes, in remission; K43.9 Ventral hernia without obstruction or gangrene; Z81.8 Family history of other mental and behavioral disorders; Z82.49 Family history of ischemic heart disease and other diseases of the circulatory system; Z82.5 Family history of asthma and other chronic lower respiratory diseases; Z83.3 Family history of diabetes mellitus
CPT/HCPCS: 36415; 71046; 71250; 74018; 80048; 80053; 81001; 83605; 83735; 83880; 84484; 85025; 86606; 86635; 87040; 87070; 87205; 94640; 96361; 96365; 96367; A6257; G0378; J0696; J2543

== ENCOUNTER 2022-03-09 15:52 | Emergency (ER) | payer BC ==
[~2022-03-09] VITALS: Ht 154.9 cm; Wt 112.3 kg
[~2022-03-09 15:52] MED LIST changes: -AZIT500T4 PO; +HYDR-4833 GT; -HYDR10TA26 PO; +LEVO750T8 PO; +LOSA-69 PO; +METR500T PO; -OSEL75CA11 PO; -PRED1PAK9 PO
[2022-03-09 16:25] VITALS: BP 199/87
[2022-03-09 16:51] LABS: Basophils # (auto) 0.1 10 ^3/uL (0-0.2); Basophils % (auto) 0.8 % (0.0-2.0); Eosinophils # (auto) 0.1 10 ^3/uL (0-0.8); Eosinophils % (auto) 0.7 % (0.0-7.0); Hematocrit 42.3 % (36.0-46.0); Hemoglobin 13.4 g/dL (12.2-16.2); Lymphocytes # (auto) 1.8 10 ^3/uL (0.4-5.4); Mean Corpuscular Hemoglobin 27.3 pg (28.0-32.0); Mean Corpuscular Hgb Conc. 31.7 g/dL (32.0-36.0); Monocytes # (auto) 0.8 10 ^3/uL (0-1.3); Monocytes % (auto) 8.4 % (0.0-12.0); Neutrophils # (auto) 6.3 10 ^3/uL (1.6-8.6); Neutrophils % (auto) 70.1 % (37.0-80.0); Red Blood Cells 4.92 10^6/uL (4.0-5.20); Red Cell Distribution Width 13.7 % (11.8-14.3); White Blood Cell 8.9 10^3/uL (4.4-10.8)
[2022-03-09 17:09] LABS: Albumin 3.2 g/dL (3.4-5.0); Calcium 8.9 mg/dL (8.5-10.1); Magnesium 2.4 mg/dL (1.6-2.6); Potassium 3.8 mmol/L (3.5-5.1)
[2022-03-09 17:10] LABS: INR 0.93 (0.9-1.15); Partial Thromboplastin Time 25.9 sec (24.6-33.4)
[2022-03-09 17:12] LABS: BUN/Creatinine Ratio 17.1; Bilirubin, Total 0.3 mg/dL (0.2-1.0); Total Protein 7.7 g/dL (6.4-8.2)
[2022-03-09] MEDS ORDERED: IPRATROPIUM BROM 0.5 MG/2.5ML INH SOL NEB ONE ×2 (18:30→23:15)
[2022-03-09] MEDS ORDERED: DexAMETHasone SOD PHOS 10MG/1ML VIAL INJ IV ONE (18:30)
[2022-03-09] MEDS ORDERED: ALBUTEROL SULF 2.5 MG/0.5ML(0.5%) NEB SOLN NEB ONE ×2 (18:30→23:15)
[2022-03-09] MEDS ORDERED: IOHEXOL 350 MG/ML 100ML IJ ONE (20:37)
[2022-03-09] MEDS ORDERED: LOSARTAN POTASSIUM 50 MG TAB PO ONE (21:30)
== END 2022-03-10 00:11 | disposition home or self-care (01) ==
LOC: ER 15:52
DX: J45.901 Unspecified asthma with (acute) exacerbation (principal); F17.210 Nicotine dependence, cigarettes, uncomplicated; E78.5 Hyperlipidemia, unspecified; I10 Essential (primary) hypertension
CPT/HCPCS: 36415; 71045; 71275; 80053; 83735; 83880; 84484; 85025; 85610; 85730; 93005; 94640; 96374; 99285; J1100; J7644; Q9967

== ENCOUNTER 2023-04-29 10:52 | Inpatient (IN) | payer BC, OTHER ==
[~2023-04-29] VITALS: Ht 180.3 cm; Wt 110.0 kg
[~2023-04-29 10:52] MED LIST changes: -LOSA-69 PO; +LOSA50TA46 PO
[2023-04-29] MEDS ORDERED: cloNIDine HCL 0.1 MG TAB PO ONE (11:45)
[2023-04-29 11:58] LABS: Basophils # (auto) 0.1 10 ^3/uL (0-0.2); Basophils % (auto) 0.4 % (0.0-2.0); Eosinophils # (auto) 0 10 ^3/uL (0-0.8); Eosinophils % (auto) 0.1 % (0.0-7.0); Hemoglobin 13.8 g/dL (12.2-16.2); Lymphocytes % (auto) 13.9 % (10.0-50.0); Mean Corpuscular Hemoglobin 27.7 pg (28.0-32.0); Mean Corpuscular Hgb Conc. 32.2 g/dL (32.0-36.0); Mean Corpuscular Volume 86.2 fL (80.0-100.0); Monocytes # (auto) 1.1 10 ^3/uL (0-1.3); Monocytes % (auto) 7.8 % (0.0-12.0); Neutrophils % (auto) 77.8 % (37.0-80.0); Nucleated Red Blood Cells % 0.1 %; Red Blood Cells 4.99 10^6/uL (4.0-5.20); Red Cell Distribution Width 14.1 % (11.8-14.3); White Blood Cell 14.1 10^3/uL (4.4-10.8)
[2023-04-29 12:09] LABS: Alanine Aminotransferase 17 U/L (7-40); Albumin 4.1 g/dL (3.2-4.8); Alkaline Phosphatase 89 U/L (46-116); Anion Gap 6 (5-15); Calcium 9.2 mg/dL (8.7-10.4); Carbon Dioxide 30 mmol/L (20-30); Chloride 102 mmol/L (98-107); Glucose 115 mg/dL (74-106); Magnesium 1.9 mg/dL (1.6-2.6); Potassium 4.4 mmol/L (3.5-5.1); Sodium 138 mmol/L (136-145)
[2023-04-29 12:10] LABS: Aspartate Aminotransferase 18 U/L (13-40); BUN/Creatinine Ratio 19.4 (10.0-20.0); Bilirubin, Total 0.8 mg/dL (0.2-1.0); Blood Urea Nitrogen 13 mg/dL (9-23); Total Protein 6.8 g/dL (5.7-8.2)
[2023-04-29 12:11] VITALS: PULSE 105; RESP 20; O2SAT 88
[2023-04-29] MEDS ORDERED: FUROSEMIDE 40 MG/4 ML VIAL IV ONE (13:00)
[2023-04-29] MEDS ORDERED: ASPirin 81 mg TAB PO ONE (13:15)
[2023-04-29] MEDS ORDERED: HEPARIN SODIUM (PORCINE) 5000 UNITS/ML 1ML VIAL IV ONE ×2 (13:15→23:00)
[2023-04-29] MEDS ORDERED: HEPARIN DRIP/D5W 100UNITS/ML 250 ML IV SCH ×2 (13:15→14:00)
[2023-04-29 14:34] LABS: COVID19 ANTIGEN SOFIA FIA NEGATIVE (NEGATIVE)
[2023-04-29 15:03] LABS: INR 1.03 (0.9-1.15); Partial Thromboplastin Time 29.2 SEC (24.5-34.5); Prothrombin Time 10.8 sec (9.3-11.8)
[2023-04-29] MEDS ORDERED: hydrALAZINE HCL 20 MG/ML VL IV PRN (17:30)
[2023-04-29 17:53] LABS: Triglycerides 145 mg/dL (< 150)
[2023-04-29 17:54] LABS: LDL Cholesterol 186 mg/dL (< 100)
[2023-04-29 17:55] LABS: HDL Cholesterol 59 mg/dL (40-59)
[2023-04-29 17:56] LABS: Cholesterol 263 mg/dL (< 200)
[2023-04-29] MEDS ORDERED: NITROGLYCERIN 0.4 MG SL TAB SL PRN (19:15)
[2023-04-29] MEDS ORDERED: MORPHINE SULFATE INJ 2 MG/ml SYRG IV PRN (19:15)
[2023-04-29] MEDS ORDERED: ONDANSETRON HCL 4 MG/2 ML VIAL IV PRN (19:15)
[2023-04-29 22:22] LABS: INR 1.08 (0.9-1.15); Partial Thromboplastin Time 31.2 SEC (24.5-34.5); Prothrombin Time 11.3 sec (9.3-11.8)
[2023-04-30] VITALS (10 sets, daily range): BP systolic 126–156; BP diastolic 73–95; PULSE 80–99; RESP 14–20; TEMP 98; O2SAT 93–99
[2023-04-30] MEDS ORDERED: HYDROcodone-ACET 5/325MG TAB PO PRN (00:45)
[2023-04-30 06:16] LABS: Basophils # (auto) 0.1 10 ^3/uL (0-0.2); Basophils % (auto) 0.6 % (0.0-2.0); Eosinophils # (auto) 0.1 10 ^3/uL (0-0.8); Eosinophils % (auto) 0.9 % (0.0-7.0); Hematocrit 42.9 % (36.0-46.0); Hemoglobin 13.8 g/dL (12.2-16.2); Lymphocytes # (auto) 2.9 10 ^3/uL (0.4-5.4); Lymphocytes % (auto) 29.3 % (10.0-50.0); Mean Corpuscular Hemoglobin 27.8 pg (28.0-32.0); Mean Corpuscular Hgb Conc. 32.1 g/dL (32.0-36.0); Mean Corpuscular Volume 86.6 fL (80.0-100.0); Monocytes # (auto) 0.8 10 ^3/uL (0-1.3); Monocytes % (auto) 7.8 % (0.0-12.0); Neutrophils # (auto) 6.1 10 ^3/uL (1.6-8.6); Neutrophils % (auto) 61.4 % (37.0-80.0); Red Blood Cells 4.95 10^6/uL (4.0-5.20); Red Cell Distribution Width 14.2 % (11.8-14.3); White Blood Cell 9.9 10^3/uL (4.4-10.8)
[2023-04-30 06:27] LABS: Anion Gap 7 (5-15); Carbon Dioxide 32 mmol/L (20-30); Chloride 101 mmol/L (98-107); INR 1.09 (0.9-1.15); Partial Thromboplastin Time 47.1 SEC (24.5-34.5); Potassium 3.9 mmol/L (3.5-5.1); Prothrombin Time 11.4 sec (9.3-11.8); Sodium 140 mmol/L (136-145)
[2023-04-30 06:28] LABS: Calcium 9.2 mg/dL (8.7-10.4)
[2023-04-30 06:33] LABS: BUN/Creatinine Ratio 21.3 (10.0-20.0); Blood Urea Nitrogen 17 mg/dL (9-23); Glucose 102 mg/dL (74-106)
[2023-04-30] MEDS ORDERED: ANGIOMAX 250 MG VIAL IV ONE (09:53)
[2023-04-30] MEDS ORDERED: VERAPAMIL 2.5MG/ML INJ 2ML VIAL IV ONE (09:53)
[2023-04-30] MEDS ORDERED: HEPARIN SODIUM (PORCINE) 5000 UNITS/ML 1ML VIAL ONE (09:53)
[2023-04-30] MEDS ORDERED: MIDAZOLAM HCL 2MG/2ML 2ml VIAL (1mg/ml) ONE (09:54)
[2023-04-30] MEDS ORDERED: SODIUM CHL 0.9% 0 ML ONE (09:54)
[2023-04-30] MEDS ORDERED: fentaNYL CITRATE 100 MCG/2 ML VL ONE (09:54)
[2023-04-30] MEDS ORDERED: LOSARTAN POTASSIUM 50 MG TAB PO SCH (10:00)
[2023-04-30] MEDS ORDERED: ASPI-325 PO (10:21)
[2023-04-30] MEDS ORDERED: ATO40T PO (10:21)
== END 2023-04-30 13:10 | disposition home or self-care (01) | DRG 280 ==
LOC: EDBD 10:52 → ER 10:52 → TELE 19:20
PROVIDERS: ADMIT Internal Medicine; ATTEND Internal Medicine
PROC: 4A023N7 Measurement of Cardiac Sampling and Pressure, Left Heart, Percutaneous Approach (ICD-10-PCS; principal; 2023-04-30)
PROC: B2111ZZ Fluoroscopy of Multiple Coronary Arteries using Low Osmolar Contrast (ICD-10-PCS; 2023-04-30)
PROC: B2151ZZ Fluoroscopy of Left Heart using Low Osmolar Contrast (ICD-10-PCS; 2023-04-30)
DX: I21.4 Non-ST elevation (NSTEMI) myocardial infarction (principal); J96.00 Acute respiratory failure, unspecified whether with hypoxia or hypercapnia; G93.1 Anoxic brain damage, not elsewhere classified; J44.9 Chronic obstructive pulmonary disease, unspecified; I10 Essential (primary) hypertension; E78.00 Pure hypercholesterolemia, unspecified; E66.9 Obesity, unspecified; Z20.822 Contact with and (suspected) exposure to COVID-19; E11.9 Type 2 diabetes mellitus without complications; F17.210 Nicotine dependence, cigarettes, uncomplicated; I25.10 Atherosclerotic heart disease of native coronary artery without angina pectoris; K80.20 Calculus of gallbladder without cholecystitis without obstruction; Z81.8 Family history of other mental and behavioral disorders; Z82.5 Family history of asthma and other chronic lower respiratory diseases; Z82.49 Family history of ischemic heart disease and other diseases of the circulatory system; Z83.3 Family history of diabetes mellitus; Z85.118 Personal history of other malignant neoplasm of bronchus and lung; Z68.33 Body mass index [BMI] 33.0-33.9, adult
CPT/HCPCS: 36415; 71045; 71260; 74177; 80048; 80053; 80061; 83036; 83605; 83735; 83880; 84443; 84484; 85025; 85379; 85610; 85730; 87040; 87426; 93005; 93306; 93458; 96365; 99152; 99291; G0378; J2250